=== PATIENT | male | born 1965 | race Caucasian/White ===

== ENCOUNTER 2021-02-15 20:39 | Emergency (ER) | payer SELFPAY ==
[2021-02-15] MEDS ORDERED: Lidocaine 1% (PF) 30 ML VIAL ONE (23:04)
[2021-02-15] MEDS ORDERED: HYDROcodone/Acetaminophen 10/325 mg Tablet ONE (23:04)
[2021-02-16] MEDS ORDERED: Bacitracin 1 PK ONE (00:06)
== END 2021-02-16 00:27 | disposition home or self-care (01) ==
LOC: ERS 20:39
DX: S51.011A Laceration without foreign body of right elbow, initial encounter (principal); W18.30XA Fall on same level, unspecified, initial encounter
CPT/HCPCS: 70450; 70486; 72125; J2001